=== PATIENT | female | born 1995 | race African-American/Black ===

== ENCOUNTER 2018-01-12 03:25 | Emergency (ER) | payer SELFPAY | END 2018-01-12 04:36 | disposition home or self-care (01) | LOC: ERS 03:25 | DX: H61.21 Impacted cerumen, right ear (principal); F41.9 Anxiety disorder, unspecified; F32.9 Major depressive disorder, single episode, unspecified; F17.210 Nicotine dependence, cigarettes, uncomplicated | CPT/HCPCS: 99282 ==

== ENCOUNTER 2019-12-07 19:28 | Emergency (ER) | payer SELFPAY ==
[2019-12-07] MEDS ORDERED: Ondansetron ODT 4 MG TAB ONE (21:16)
== END 2019-12-07 21:17 | disposition home or self-care (01) ==
LOC: ERS 19:28
DX: B34.9 Viral infection, unspecified (principal); R11.2 Nausea with vomiting, unspecified; Z87.891 Personal history of nicotine dependence
CPT/HCPCS: 99283; Q0162

== ENCOUNTER 2020-09-14 03:40 | Emergency (ER) | payer MEDICAID, SELFPAY ==
[2020-09-14 04:10] LABS: #Basophils 0.1 thou/uL (0.0-0.2); #Eosinphils 0.1 thou/uL (0.0-0.7); #Lymphocytes 2.3 thou/uL (1.20-3.40); #Monocytes 0.6 thou/uL (0.11-0.59); #Neutrophils 5.3 thou/uL (1.40-6.50); %Basophils 1.1 % (0.0-1.0); %Eosinophils 1.2 % (0.0-10.0); %Lymphocytes 27.8 % (21.0-51.0); %Neutrophils 62.8 % (42.0-75.0); Hemoglobin 13.2 g/dL (12.0-16.0); Mean Corpuscular HGB CONC 34.2 g/dL (32.0-36.0); Mean Corpuscular Volume 93.7 fL (78.0-98.0); Mean Platelet Volume 7.3 fL (7.4-10.4); Platelet Count 444 thou/uL (130-400); RBC Distribution Width 11.6 % (11.5-14.5); Red Blood Cell (RBC) Count 4.12 mill/uL (4.20-5.40); White Blood Cell (WBC) Count 8.4 thou/uL (4.8-10.8)
[2020-09-14] MEDS ORDERED: Acetaminophen 500 MG TAB ONE (04:51)
[2020-09-14 04:52] LABS: Bacteria/HPF None Seen HPF (None Seen); Bilirubin Negative (Negative); Blood, Urine 2+ (Negative); Clarity Clear (Clear); Glucose, Urine (Dipstick) Normal (Negative); Ketone, Urine Negative (Negative); Leukocyte 250 Leu/uL (Negative); Nitrite Negative (Negative); Protein, Urine (Dipstick) Negative (Neg-Trace); RBC/HPF 0-3 HPF (0-3); Specific Gravity, Urine 1.013 (1.002-1.036); Urobilinogen Normal mg/dL (Less than 2); pH, Urine 6.5 (5.0-9.0)
[2020-09-14 04:56] LABS: Pregnancy Test - Urine (BHCG) POSITIVE (Negative); Pregu Control Background? CLEAR/WHITE (CLR/WHITE); Pregu Control Bar Appear? YES (CONTROL BAR); Specific Gravity 1.013 (1.002-1.036)
--- NOTE | 2020-09-14 08:30 | ULT ---
PRELIMINARY REPORT/[facility]/EMERGENCY AFTER HOURS PROCEDURE EXAM: US Pelvis, Complete. CLINICAL HISTORY: HX: LLQ PAIN. SEE NOTES ON LAST IMAGE. THANKS TECHNIQUE: Transvaginal and transabdominal pelvic ultrasound (complete) with image documentation. COMPARISON: None provided. FINDINGS: ENDOMETRIUM: Intrauterine gestational sac and yolk sac identified but no pole seen at this time. Sac size c orresponding to a gestation of about 5 weeks 2 days. EDC is May 15, 2021 UTERUS/CERVIX: Normal size and contour. No fibroid detected. RIGHT OVARY: Normal follicles. No adnexal mass. Normal blood flow. LEFT OVARY: Normal follicles. No adnexal mass. Normal blood flow. FREE FLUID: Trace free fluid. IMPRESSION: Early IUP. No specific abnormalities. ELECTRONICALLY SIGNED BY: Rolf Dowell MD Sep 14, 2020 6:59:13 AM CDT This report is intended for review by the ordering physician only, in accordance of law. If you recei ve this report in error, please call [facility] at [phone]. FINAL REPORT US Pelvic Transvag History: Left lower quadrant pain. Comparison: None. Findings/Impression: Concordant with the initial report. Close follow-up hCG and ultrasound recommend ed. Transcribed Date/Time: 09/14/2020 8:34 AM
== END 2020-09-14 07:27 | disposition home or self-care (01) ==
LOC: ERS 03:40
DX: O99.891 Other specified diseases and conditions complicating pregnancy (principal); R10.32 Left lower quadrant pain; Z3A.01 Less than 8 weeks gestation of pregnancy; Z87.891 Personal history of nicotine dependence
CPT/HCPCS: 36415; 76856; 81003; 81015; 81025; 83690; 84702; 85025